=== PATIENT | female | born 1970 | race Caucasian/White ===

== ENCOUNTER 2024-01-24 22:48 | Emergency (ER) | payer SELFPAY ==
[2024-01-24 22:56] VITALS: BP 210/160; PULSE 120; TEMP 36.7; O2SAT 95; BMI 26.6
--- NOTE | 2024-01-24 23:10 | PC.NURSE ---
Pt presents to ER for URI type symptoms pt states that she had a cold 1 week ago that has since turned into what she believes is pneumonia Pt states she has never had pneumonia but her lungs feel heavy and she has been coughing up green mucos as well as blowing it out of her nose On arrival pt's blood pressure is elevated, pt states she used to take blood pressure medication but she lost her insurance so she no longer takes her medications or see's her PCP because she cannot afford it Pt is a-febrile, states she has been taking Mucinex and nasal spray but it does not seem to help her symptoms
[2024-01-24 23:32] VITALS: PULSE 114
--- NOTE | 2024-01-24 23:32 | ECG_ITS ---
[facility] Test Date: 2024-01-24 Pat Name: BIANCA JACKSON Department: Room: - Gender: Female Personal Attendant: : 1970 Requested By: [id number] Order Number: [id number] Reading MD: GEOVANY ARORA Measurements Intervals [place] Rate: 114 P: 75 WV: 144 QRS: 84 QRSD: 128 T: 67 QT: 362 QTc: 429 Interpretive Statements 1120 Sinus tachycardia 2450 Right bundle branch block 9150 abnormal ECG Compared to ECG 06/07/2020 10:32:16 Sinus rhythm no longer present Electronically Signed On 01-25-2024 7:41:26 EDT by GEOVANY ARORA
[2024-01-24 23:40] VITALS: PULSE 115
--- NOTE | 2024-01-24 23:41 | ED_ITS ---
HPI HPI - General Adult General Chief complaint: Shortness of Breath/Dyspnea Stated complaint: DIFF BREATHING Time Seen by Provider: 01/24/24 23:38 Source: patient Mode of arrival: walk-in Limitations: no limitations History of Present Illness HPI narrative: daily smoker. Past history of Hypertension but doesn't take medication because she no longer has insurance. Cough productive green phlegm for one week. Feels like her BPand heart rate are elevated. No nausea or abdominal pain Related Data Home Medications ?Medication ?Instructions ?Recorded ?Confirmed No Known Home Medications 01/24/24 01/24/24 Allergies Allergy/AdvReac Type Severity Reaction Status Date / Time No Known Drug Allergies Allergy Verified 01/24/24 23:02 Opioid HPI Opioid Management Most Recent Opioid Data: No Data to Display Review of Systems ROS Status of ROS 10 or more systems reviewed and unremark able except as noted in history and below Exam Constitutional Vital Signs, click to edit/add: Last Vital Signs Temp 98.1 F 01/24/24 22:56 Pulse 112 H 01/25/24 02:20 Resp 18 01/25/24 02:20 BP 191/130 H 01/25/24 02:30 Pulse Ox 94 L 01/25/24 02:20 O2 Del Method Room Air 01/25/24 02:20 Common normals: no apparent distress, average body habitus, oriented x3, no limitations, healthy appearing, alert and well nourished Eye Common normals: EOMs intact bilaterally and conjunctivae normal Respiratory Common normals: normal respiratory effort, no retractions, no use of accessory muscles and clear to auscultation bilaterally Cardio Common normals: regular rate, regular rhythm, S1 normal heart sound and S2 normal heart sound GI Common normals: Normal to inspection, nondistended, normoactive bowel sounds present, soft to palpation and non-tender Extremity Common normals: normal to inspection and full ROM Neuro Common normals: oriented x3, CN's II-XII intact bilaterally and moves all extremities Psych Appearance: grossly normal Course Vital Signs Vital signs: Vital Signs Temperature 98.1 F 01/24/24 22:56 Pulse Rate 120 H 01/24/24 22:56 Respiratory Rate 18 01/24/24 22:56 Blood Pressure 210/160 H 01/24/24 22:56 Pulse Oximetry 95 01/24/24 22:56 Oxygen Delivery Method Room Air 01/24/24 22:56 Temperature 98.1 F 01/24/24 22:56 Pulse Rate 112 H 01/25/24 02:20 Respiratory Rate 18 01/25/24 02:20 Blood Pressure 191/130 H 01/25/24 02:30 Pulse Oximetry 94 L 01/25/24 02:20 Oxygen Delivery Method Room Air 01/25/24 02:20 Medical Decision Making MDM Narrative Medical decision making narrative: patient is daily smoker. known HTN that she does not treat due to lack of insurance. informed nursing her BP usually is 190s systolic. Patient presented due to productive cough. Cxray with mild cardiomegaly but clear lungs. Cough productive of green phlegm. swabs neg for Covid and influenza. Patient treated with solumedrol, albuterol and hydralazine. BP decreased from 210 systolic to 191. Patient feeling better after intervention. Discharged home with a prescription of lisinopril and zpak as well as an albuterol inhaler Lab Data Labs: Lab Results 01/24/24 01/24/24 01/25/24 Range/Units 23:50 23:55 01:48 WBC 13.1 H (4.0-11.0) 10^3/uL RBC 5.08 (4.20-5.40) 10^6/uL Hgb 13.6 (12.0-16.0) g/dL Hct 43.6 (36.0-48.0) % MCV 85.8 (81.0-99.0) fL MCH 26.8 (26.7-34.0) pg MCHC 31.2 (29.9-35.2) g/dL RDW 13.5 (11.0-15.0) % Plt Count 316 (150-450) 10^3/uL MPV 9.1 L (9.5-13.5) fL Neut % (Auto) 69.2 (43.0-75.0) % Lymph % (Auto) 12.0 L (20.5-60.0) % [place] % (Auto) 13.9 H (1.7-12.0) % Eos % (Auto) 3.6 (0.9-7.0) % Baso % (Auto) 0.8 (0.2-2.0) % Neut # (Auto) 9.1 H (1.4-6.5) 10^3/uL Lymph # (Auto) 1.6 (1.2-3.8) 10^3/uL [place] # (Auto) 1.8 H (0.3-0.8) 10^3/uL Eos # (Auto) 0.5 (0.0-0.7) 10^3/uL Baso # (Auto) 0.1 (0.0-0.1) 10^3/uL Abs Immat Gran (auto) 0.06 H (0.00-0.03) 10^3/uL Imm/Tot Granulo (auto) 0.5 (0.0-0.5) % D-Dimer 0.41 (<=0.59) mg/L FEU Sodium 138 (136-145) mmol/L Potassium 3.5 (3.5-5.1) mmol/L Chloride 101 (98-107) mmol/L Carbon Dioxide 28.4 (21.0-32.0) mmol/L Anion Gap 12.1 BUN 9.0 (7.0-18.0) mg/dL Creatinine 0.66 (0.55-1.02) mg/dL Est GFR ( Amer) >60 (>=60) Est GFR (Non-Af Amer) >60 (>=60) BUN/Creatinine Ratio 13.6 Glucose 113 H (74-106) mg/dL Lactate 0.8 (0.4-2.0) mmol/L Calcium 9.0 (8.5-10.1) mg/dL Troponin I High Sens 34.5 35.8 (4.0-51.3) pg/mL Influenza Type A Ag Negative Influenza Type B Ag Negative SARS-CoV-2 Ag (CV2AG) Negative (NEGATIVE) Imaging Data Chest x-ray: Radiologist's impression: ITS Impressions Chest X-Ray 01/24/24 23:42 IMPRESSION: 1. Mildly enlarged cardiac silhouette with clear lungs. Electronically authenticated by: Chris REILLY Date: 01/25/2024 00:22 Discharge Plan Discharge Stand Alone Forms: Portal Instructions Chief Complaint: Shortness of Breath/Dyspnea Clinical Impression: Hypertensive urgency, Acute bronchitis Patient Disposition: Home, Self-Care Prescriptions / Home Meds: No Action No Known Home Medications Print Language: Syriac Instructions: Acute Bronchitis (ED), Hypertension (ED) Additional Instructions: follow up with your doctor next week Referrals: Physician,Non-Staff, MD [Primary Care Provider] - 1 week
--- NOTE | 2024-01-24 23:42 | XR_ITS ---
The [address] [address] Patient Name: BIANCA JACKSON MRN: [id number] date: 1970 Sex: F Assigned Patient Location: ER Current Patient Location: ER Accession/Order Number: [id number] Exam Date: 01/24/2024 23:50 Report Date: 01/25/2024 00:22 At the request of: LYLE SNELL Procedure: XR chest 1V EXAM: XR chest 1V HISTORY: cough COMPARISON: None. TECHNIQUE: One view of the chest was obtained. FINDINGS: The cardiac silhouette is mildly enlarged. There is nonspecific elevation of the right hemidiaphragm. There is no significant pneumothorax or pleural effusion. No acute osseous abnormality is seen. XR/XR chest 1V IMPRESSION: 1. Mildly enlarged cardiac silhouette with clear lungs. Electronically authenticated by: Chris REILLY Date: 01/25/2024 00:22
[2024-01-24 23:57] VITALS: O2SAT 95
[2024-01-25] VITALS (15 sets, daily range): BP systolic 190–199; BP diastolic 116–130; PULSE 110–115; O2SAT 89–95
[2024-01-25 00:06] LABS: Basophils Absolute Auto 0.1 10^3/uL (0.0-0.1); Basophils Percent Auto 0.8 % (0.2-2.0); Eosinophils Absolute Auto 0.5 10^3/uL (0.0-0.7); Eosinophils Percent Auto 3.6 % (0.9-7.0); Hematocrit 43.6 % (36.0-48.0); Hemoglobin 13.6 g/dL (12.0-16.0); Immature Granulocytes Abs Auto 0.06 10^3/uL (0.00-0.03); Immature Granulocytes Pct Auto 0.5 % (0.0-0.5); Lymphocytes Absolute Auto 1.6 10^3/uL (1.2-3.8); Mean Corpuscular HGB Conc 31.2 g/dL (29.9-35.2); Mean Corpuscular Hemoglobin 26.8 pg (26.7-34.0); Mean Corpuscular Volume 85.8 fL (81.0-99.0); Mean Platelet Volume 9.1 fL (9.5-13.5); Monocytes Absolute Auto 1.8 10^3/uL (0.3-0.8); Monocytes Percent Auto 13.9 % (1.7-12.0); Neutrophils Absolute Auto 9.1 10^3/uL (1.4-6.5); Neutrophils Percent Auto 69.2 % (43.0-75.0); Platelet Count 316 10^3/uL (150-450); Red Blood Count 5.08 10^6/uL (4.20-5.40); Red Cell Distribution Width 13.5 % (11.0-15.0); White Blood Count 13.1 10^3/uL (4.0-11.0)
[2024-01-25 00:21] LABS: Lactate/Lactic Acid 0.8 mmol/L (0.4-2.0)
[2024-01-25 00:21] LABS: Influenza Virus A Antigen Negative; Influenza Virus B Antigen Negative; Internal Control Within Normal Limits; SARS-CoV-2 Ag NEGATIVE (NEGATIVE)
[2024-01-25 00:22] LABS: Anion Gap 12.1; BUN Creatinine Ratio 13.6; Carbon Dioxide 28.4 mmol/L (21.0-32.0); Chloride 101 mmol/L (98-107); Estimated GFR (African America >60 (>=60); Estimated GFR (Non-African Ame >60 (>=60); Glucose 113 mg/dL (74-106); Potassium 3.5 mmol/L (3.5-5.1); Sodium 138 mmol/L (136-145); Troponin I High Sensitivity 34.5 pg/mL (4.0-51.3)
[2024-01-25] MEDS: 0.9 % SODIUM CHLORIDE 1,000 ML 999 ML IV (00:47)
[2024-01-25] MEDS: HYDRALAZINE HCL 20 MG/ML VIAL 10 MG IVP (00:47)
[2024-01-25 02:10] LABS: Troponin I High Sensitivity 35.8 pg/mL (4.0-51.3)
[2024-01-25 02:15] LABS: D Dimer 0.41 mg/L FEU (<=0.59)
[2024-01-25] MEDS: IPRATROPIUM/ALBUTEROL SULFATE 3 ML AMPUL.NEB IH (02:20)
[2024-01-25] MEDS: METHYLPREDNISOLONE SOD SUCC PF 125 MG/2 ML VIAL IVP (02:30)
== END 2024-01-25 03:11 | disposition home or self-care (01) ==
PROVIDERS: Emergency Provider Internal Medicine
DX: I16.0 Hypertensive urgency (principal); J20.9 Acute bronchitis, unspecified; F17.210 Nicotine dependence, cigarettes, uncomplicated; Z20.822 Contact with and (suspected) exposure to COVID-19; Z91.148 Patient's other noncompliance with medication regimen for other reason
CPT/HCPCS: 36415; 71045; 80048; 83605; 84484; 85025; 85378; 87804; 87811; 93005; 94640; 96374; 96375; 99285; J2919